=== PATIENT | female | born 1970 | race African-American/Black ===

== ENCOUNTER 2018-02-09 10:49 | Inpatient (IN) | payer OTHER ==
--- OUTSIDE RECORDS SUMMARY | 2018-02-09 10:52 | XMS REPORT | Clinical Summary ---
:1970 Author Organization [facility] Address [address] [place] [address] Care Team Providers Name Role Phone Asked, No Pcp Primary Care Provider Unavailable Allergies No Known Allergies Medications Not on file Active Problems Not on file Encounters Date Type Specialty Care Team Description 11/09/2017 Emergency Emergency Medicine Deo Cowart Decreased sensation of JasperDO right lower extremity s/p balloon angioplasty (Primary Dx) after 02/08/2017 Social History Tobacco Use Types Packs/Day Years Used Date Former Smoker Smokeless Tobacco: Never Used Sex Assigned at Date Recorded Not on file Job Start Date Occupation Industry Not on file Not on file Not on file Travel History Travel Start Travel End No recent travel history available. Last Filed Vital Signs Vital Sign Reading Time Taken Blood Pressure 168/84 11/09/2017 7:00 PM CDT Pulse 87 11/09/2017 7:00 PM CDT Temperature 36.2 C (97.1 F) 11/09/2017 4:41 PM CDT Respiratory Rate 14 11/09/2017 7:00 PM CDT Oxygen Saturation 99% 11/09/2017 7:00 PM CDT Inhaled Oxygen Concentration - - Weight 99.2 kg (218 lb 11.1 oz) 11/09/2017 4:36 PM CDT Height 162.6 cm (5' 4") 11/09/2017 4:36 PM CDT Body Mass Index 37.54 11/09/2017 4:36 PM CDT Plan of Treatment Health Maintenance Due Date Last Done Comments MMR VACCINES (1 of 1 - Standard 06/09/1972 series) VARICELLA VACCINES (1 of 2 - 2-dose 06/09/1984 adolescent series) CERVICAL CANCER SCREENING 06/09/1992 INFLUENZA VACCINE 10/21/2017 HEPATITIS B VACCINES Aged Out No longer eligible based on patient's age to complete this topic IPV VACCINES Aged Out No longer eligible based on patient's age to complete this topic MENINGOCOCCAL VACCINE Aged Out No longer eligible based on patient's age to complete this topic Procedures Procedure Name Priority Date/Time Associated Comments Diagnosis US DUPLEX VENOUS LOWER STAT 11/09/2017 6:54 Results for this EXTREMITY RIGHT PM CDT procedure are in the results section. US DUPLEX ARTERIAL STAT 11/09/2017 6:38 Results for this LOWER EXTREMITY RIGHT PM CDT procedure are in the results section. ZZESTIMATED GFR STAT 11/09/2017 4:50 Results for this PM CDT procedure are in the results section. HCG QUALITATIVE, SERUM STAT 11/09/2017 4:50 Results for this SCREEN PM CDT procedure are in the results section. B NATRIURETIC PEPTIDE STAT 11/09/2017 4:50 Results for this PM CDT procedure are in the results section. TROPONIN STAT 11/09/2017 4:50 Results for this PM CDT procedure are in the results section. COMPREHENSIVE STAT 11/09/2017 4:50 Results for this METABOLIC PANEL PM CDT procedure are in the results section. HC COMPLETE BLD COUNT STAT 11/09/2017 4:50 Results for this W/AUTO DIFF PM CDT procedure are in the results section. after 02/08/2017 Results PV Duplex Venous Lower Extremity (11/09/2017 6:54 PM CDT) Narrative Performed At EXAMINATION:US DUPLEX VENOUS LOWER EXTREMITY RIGHT [facility] CLINICAL HISTORY:numbnessdecreased sensation COMPARISON:None. TECHNIQUE:Grayscale, color Doppler, and spectral waveform analysis of the right lower extremity deep venous system was performed. The common femoral, superficial femoral, proximal deep femoral, greater saphenous, and popliteal veins were evaluated. The calf veins were also evaluated. FINDINGS: The right common femoral, superficial femoral, and popliteal veins are compressible. They demonstrate normal venous waveforms and response to augmentation. There is flow in the visualized calf veins. There is no evidence of a popliteal or Nunez's cyst. The contralateral common femoral vein was also evaluated, and is patent. IMPRESSION: Normal right lower extremity venous Doppler examination. There is no evidence of deep venous thrombosis. [facility]-[id number] Procedure Note Interface, Radiology Results Incoming - 11/09/2017 6:57 PM CDT EXAMINATION: US DUPLEX VENOUS LOWER EXTREMITY RIGHT CLINICAL HISTORY: numbness decreased sensation COMPARISON: None. TECHNIQUE: Grayscale, color Doppler, and spectral waveform analysis of the right lower extremity deep venous system was performed. The common femoral, superficial femoral, proximal deep femoral, greater saphenous, and popliteal veins were evaluated. The calf veins were also evaluated. FINDINGS: The right common femoral, superficial femoral, and popliteal veins are compressible. They demonstrate normal venous waveforms and response to augmentation. There is flow in the visualized calf veins. There is no evidence of a popliteal or Nunez's cyst. The contralateral common femoral vein was also evaluated, and is patent. IMPRESSION: Normal right lower extremity venous Doppler examination. There is no evidence of deep venous thrombosis. [facility]-[id number] Performing Organization Address City/State/Zipcode Phone Number [facility] [address] [place] [address] PV Duplex Arterial Lower Extremity (11/09/2017 6:38 PM CDT) Narrative Performed At EXAM: US DUPLEX ARTERIAL LOWER EXTREMITY RIGHT [facility] HISTORY: no palpable pulsedecreased sensation to right lower leg TECHNIQUE: Real-time as well as pulsed and color Doppler evaluation of bilateral common femoral, femoral, popliteal, posterior tibial, anterior tibial, and dorsalis pedis arteries are evaluated. The examination includes a full duplex Doppler scan of the blood vessels (real-time P mode grayscale, Doppler spectral analysis, and Doppler color flow imaging). IMPRESSION: Triphasic waveforms are demonstrated in the right lower extremity with biphasic waveforms below the popliteal artery. The findings would suggest stenosis at the right popliteal artery. No arterial occlusion is noted.. FINDINGS: Peak systolic velocities are as follows: RIGHT LEG: EXTERNAL ILIAC ARTERY:136 cm/s COMMON FEMORAL:110cm/s FEMORAL: Proximal: 53cm/s Mid: 49 cm/s Distal:6 6cm/s POPLITEAL: Proximal:40cm/s Mid: 51 cm/s Distal: 43cm/s POSTERIOR TIBIAL: Proximal: 52 cm/s Mid: 41 cm/s Distal:4 5 cm/s ANTERIOR TIBIAL: Proximal: 30 cm/s Mid: 32 cm/s Distal:5 0 cm/s DORSALIS PEDIS: 31 cm/s ANKLE BRACHIAL INDEX: Not performed. Posterior tibial: Dorsalis pedis: [id number] Procedure Note Interface, Radiology Results Incoming - 11/09/2017 6:48 PM CDT EXAM: US DUPLEX ARTERIAL LOWER EXTREMITY RIGHT HISTORY: no palpable pulse decreased sensation to right lower leg TECHNIQUE: Real-time as well as pulsed and color Doppler evaluation of bilateral common femoral, femoral, popliteal, posterior tibial, anterior tibial , and dorsalis pedis arteries are evaluated. The examination includes a full duplex Doppler scan of the blood vessels (real-time P mode grayscale, Doppler spectral analysis, and Doppler color flow imaging). IMPRESSION: Triphasic waveforms are demonstrated in the right lower extremity with biphasic waveforms below the popliteal artery. The findings would suggest stenosis at the right popliteal artery. No arterial occlusion is noted.. FINDINGS: Peak systolic velocities are as follows: RIGHT LEG: EXTERNAL ILIAC ARTERY: 136 cm/s COMMON FEMORAL: 110cm/s FEMORAL: Proximal: 53cm/s Mid: 49 cm/s Distal: 66cm/s POPLITEAL: Proximal: 40cm/s Mid: 51 cm/s Distal: 43cm/s POSTERIOR TIBIAL: Proximal: 52 cm/s Mid: 41 cm/s Distal: 45 cm/s ANTERIOR TIBIAL: Proximal: 30 cm/s Mid: 32 cm/s Distal: 50 cm/s DORSALIS PEDIS: 31 cm/s ANKLE BRACHIAL INDEX: Not performed. Posterior tibial: Dorsalis pedis: [id number] Performing Organization Address City/[facility]/Zipcode Phone Number [facility] [address] [place] [address] Estimated GFR (11/09/2017 4:50 PM CDT) GFR Non Af Amer 3 (A) mL/min/1.73 m2 [facility] DEPARTMENT OF PATHOLOGY AND GENOMIC MEDICINE GFR Af Amer 4 (A) mL/min/1.73 m2 [facility] DEPARTMENT OF Comment: PATHOLOGY AND GENOMIC Chronic kidney disease: <60 mL/min/1.73m2 MEDICINE Kidney failure: <15 mL/min/1.73m2 The estimated GFR is calculated from the IDMS-traceable Modification of Diet in Renal Disease Equation. The accuracy of the calculation is poor when the creatinine is normal. Calculated values >90 mL/min/1.73m2 are not reported. This equation has not been validated in children (<18 years), women, the elderly (>70 years), or ethnic groups other than Caucasians and Americans. Specimen Plasma specimen Performing Organization Address City/State/Zipcode Phone Number [facility] DEPARTMENT OF PATHOLOGY [address] [facility] [place] [address] AND Education Everytime MEDICINE Troponin (11/09/2017 4:50 PM CDT) Troponin <0.30 0.00 - 0.30 ng/mL [facility] DEPARTMENT OF PATHOLOGY Comment: AND GENOMIC MEDICINE 0.11 - 1.49 ng/mlMay indicate increased risk of acute coronary syndrome. >=1.5 ng/mlConsistent with acute myocardial infarction. The diagnostic value of a single normal or non-diagnostic result is questionable.Serial samples at 2-6 hour intervals are required to rule out acute myocardial injury. Specimen Plasma specimen Performing Organization Address City/State/Zipcode Phone Number [facility] DEPARTMENT OF PATHOLOGY [address] [place] [address] AND GENOMIC MEDICINE CBC with platelet and differential (11/09/2017 4:50 PM CDT) WBC 6.2 4.5 - 11.0 k/uL [facility] DEPARTMENT OF PATHOLOGY AND GENOMIC MEDICINE RBC 3.76 (L) 4.20 - 5.50 m/uL [facility] DEPARTMENT OF PATHOLOGY AND GENOMIC MEDICINE HGB 12.4 12.0 - 16.0 g/dL [facility] DEPARTMENT OF PATHOLOGY AND GENOMIC MEDICINE HCT 38.4 37.0 - 47.0 % [facility] DEPARTMENT OF PATHOLOGY AND GENOMIC MEDICINE MCV 102.1 (H) 82.0 - 100.0 fL [facility] DEPARTMENT OF PATHOLOGY AND GENOMIC MEDICINE MCH 33.0 27.0 - 34.0 pg [facility] DEPARTMENT OF PATHOLOGY AND GENOMIC MEDICINE MCHC 32.3 31.0 - 37.0 g/dL [facility] DEPARTMENT OF PATHOLOGY AND GENOMIC MEDICINE RDW - SD 54.5 37.0 - 55.0 fL [facility] DEPARTMENT OF PATHOLOGY AND GENOMIC MEDICINE MPV 11.0 6.9 - 11.0 fL [facility] DEPARTMENT OF PATHOLOGY AND GENOMIC MEDICINE Platelet count 155 150 - 400 K/uL [facility] DEPARTMENT OF PATHOLOGY AND GENOMIC MEDICINE Nucleated RBC 0.00 /100 WBC [facility] DEPARTMENT OF PATHOLOGY AND GENOMIC MEDICINE Neutrophils 59.5 39.0 - 69.0 % [facility] DEPARTMENT OF PATHOLOGY AND GENOMIC MEDICINE Lymphocytes 28.7 25.0 - 45.0 % [facility] DEPARTMENT OF PATHOLOGY AND GENOMIC MEDICINE Monocytes 7.6 0.0 - 10.0 % [facility] DEPARTMENT OF PATHOLOGY AND GENOMIC MEDICINE Eosinophils 3.1 0.0 - 5.0 % [facility] DEPARTMENT OF PATHOLOGY AND GENOMIC MEDICINE Basophils 0.6 0.0 - 1.0 % [facility] DEPARTMENT OF PATHOLOGY AND GENOMIC MEDICINE Immature granulocytes 0.5 0.0 - 1.0 % [facility] DEPARTMENT OF PATHOLOGY AND GENOMIC MEDICINE Specimen Blood Performing Organization Address City/[facility]/Zipcode Phone Number [facility] DEPARTMENT OF PATHOLOGY [address] [place] [address] AND [facility] hCG qualitative, serum screen (11/09/2017 4:50 PM CDT) hCG qualitative, serum NegativeComment: [facility] DEPARTMENT OF Sensitivity of HCG test: 25 PATHOLOGY AND GENOMIC mIU/mL MEDICINE Specimen Blood Performing Organization Address City/[facility] Phone [facility] DEPARTMENT OF PATHOLOGY [address] [place] [address] AND [facility] B natriuretic peptide (11/09/2017 4:50 PM CDT) BNP 435 (H) 0 - 100 pg/mL [facility] DEPARTMENT OF PATHOLOGY AND GENOMIC MEDICINE Specimen Blood Performing Organization Address [facility] Centercoor Phone Number [facility] DEPARTMENT OF PATHOLOGY [address] [place] [address] AND [facility] Comprehensive metabolic panel (11/09/2017 4:50 PM CDT) Sodium 140 135 - 148 mEq/L [facility] DEPARTMENT OF PATHOLOGY AND GENOMIC MEDICINE Potassium 5.5 (H) 3.5 - 5.0 mEq/L [facility] DEPARTMENT OF PATHOLOGY AND GENOMIC MEDICINE Chloride 90 (L) 98 - 112 mEq/L [facility] DEPARTMENT OF PATHOLOGY AND GENOMIC MEDICINE CO2 27 24 - 31 mEq/L [facility] DEPARTMENT OF PATHOLOGY AND GENOMIC MEDICINE Anion gap 23@ANIO (H) 7 - 15 mEq/L [facility] DEPARTMENT OF PATHOLOGY AND GENOMIC MEDICINE BUN 91 (H) 6 - 20 mg/dL [facility] DEPARTMENT OF PATHOLOGY AND GENOMIC MEDICINE Creatinine 11.9 (H) 0.5 - 0.9 mg/dL [facility] DEPARTMENT OF PATHOLOGY AND GENOMIC MEDICINE Glucose 175 (H) 65 - 99 mg/dL [facility] DEPARTMENT OF PATHOLOGY AND GENOMIC MEDICINE Calcium 9.1 8.3 - 10.2 mg/dL [facility] DEPARTMENT OF PATHOLOGY AND GENOMIC MEDICINE Protein 8.6 (H) 6.3 - 8.3 g/dL [facility] DEPARTMENT OF PATHOLOGY AND GENOMIC MEDICINE Albumin 4.4 3.5 - 5.0 g/dL [facility] DEPARTMENT OF PATHOLOGY AND GENOMIC MEDICINE A/G ratio 1.0 0.7 - 3.8 [facility] DEPARTMENT OF PATHOLOGY AND GENOMIC MEDICINE Alkaline phosphatase 78 35 - 104 U/L [facility] DEPARTMENT OF PATHOLOGY AND GENOMIC MEDICINE AST 37 (H) 10 - 35 U/L [facility] DEPARTMENT OF PATHOLOGY AND GENOMIC MEDICINE ALT 28 5 - 50 U/L [facility] DEPARTMENT OF PATHOLOGY AND GENOMIC MEDICINE Total bilirubin 0.7 0.2 - 1.2 mg/dL [facility] DEPARTMENT OF PATHOLOGY AND GENOMIC MEDICINE Specimen Plasma specimen Performing Organization Address City/State/Zipcode Phone Number [facility] DEPARTMENT OF PATHOLOGY [address] [place] [address] AND Education Everytime MEDICINE after 02/08/2017 Insurance Payer Benefit Plan / Group Subscriber ID Type Phone Address MEDICARE MEDICARE PART A AND B xxxxxxxxxx Medicare [place], [place] COMMERCIAL MISC MISC COMMERCIAL xxxxxxxxxx Commercial Advance Directives Patient has advance care planning documents on file. For more information, please contact:Juan Alberto [id number] [place] [address]
--- OUTSIDE RECORDS SUMMARY | 2018-02-09 10:52 | XMS REPORT | Clinical Summary ---
:1970 Author Organization [facility] Address [address] [place] [address] Care Team Providers Name Role Phone Rosy Lord MD Primary Care Provider Allergies No Known Allergies Medications Medication Sig Dispensed Refills Start Date End Date Status insulin aspart Inject 12 Units 0 Active (NOVOLOG) 100 unit/mL into the skin 3 injection (three) times daily before meals. sevelamer (RENVELA) Take 800 mg by 0 Active 800 mg tablet mouth 3 (three) times daily with meals. 5 tabs carvedilol (COREG) 25 Take 25 mg by 0 Active MG tablet mouth 2 (two) times daily with breakfast and dinner. esomeprazole (NEXIUM) Take 40 mg by 0 Active 40 MG capsule mouth daily. clopidogrel (PLAVIX) Take 75 mg by 0 Active 75 mg tablet mouth daily. zolpidem (AMBIEN) 5 MG Take 5 mg by mouth 0 Active tablet every night as needed. docusate sodium Take 100 mg by 0 Active (COLACE) 100 MG mouth 2 (two) capsule times daily. Active Problems Problem Noted Date Acute Left pontine CVA (HCC)Acute nonhemorrhagic, with Right sided 01/02/2016 numbness Numbness and tingling 12/30/2015 ESRD on hemodialysis 12/30/2015 Acute ischemic stroke 12/30/2015 PAD (peripheral artery disease) 09/15/2012 Osteomyelitis 09/14/2012 Osteomyelitis of foot 09/14/2012 Diabetes mellitus Hypertension Family History Medical History Relation Name Comments Lupus Cousin Diabetes Father Hypertension Father Kidney disease Father Hypertension Mother Stroke Mother Relation Name Status Comments Cousin Father Mother Social History Tobacco Use Types Packs/Day Years Used Date Former Smoker Alcohol Use Drinks/Week oz/Week Comments No Sex Assigned at Date Recorded Not on file Job Start Date Occupation Industry Not on file Not on file Not on file Travel History Travel Start Travel End No recent travel history available. Last Filed Vital Signs Not on file Plan of Treatment Not on file Results Not on fileafter 02/08/2017 Insurance Payer Benefit Plan / Group Subscriber ID Type Phone Address MEDICARE MEDICARE A B xxxxxxxxxx Medicare Advance Directives For more information, please contact:[address] [phone] Code Status Date Activated Date Inactivated Comments Full Code 12/30/2015 6:41 PM 01/01/2016 9:28 PM This code status was determined by: Patient Code ONE 09/14/2012 9:49 PM 09/22/2012 1:27 PM All possible means of support , including: cardiac massage, mechanical ventilation, and defibrillation will be used to support life.
[2018-02-09] MEDS ORDERED: ACETAMINOPHEN 500 MG TAB ONE (11:22)
[2018-02-09] MEDS ORDERED: NA CHLORIDE 0.9% 500 ML ONE (11:22)
[2018-02-09] MEDS ORDERED: CEFEPIME 1 GM/100 ML BAG IV ONE (11:23)
[2018-02-09 11:50] LABS: Absolute Lymphocytes (CBC) 0.8 K/uL (0.7-4.9); Absolute Monocytes 0.9 K/uL (0.1-1.3); Absolute Neutrophil 7.5 K/uL (1.8-8.0); Basophils % 0.4 % (0-1.3); Eosinophils % 0.8 % (0-4.4); Hematocrit 35.1 % (36.0-45.0); Lymphocytes % 8.4 % (15.3-44.8); MCH 34.5 pg (27.0-35.0); MCV 100.6 fL (80-100); MPV 9.3 fL (7.6-11.3); Monocytes % 9.2 % (3.3-12.3); RBC Red Blood Cell Count 3.49 M/uL (3.86-4.86)
[2018-02-09 11:57] LABS: Protime INR 1.19
[2018-02-09 12:12] LABS: Albumin 3.3 g/dL (3.4-5.0); Bilirubin Direct 0.5 mg/dL (0-0.2); Bilirubin Total 0.9 mg/dL (0.2-1.0); Potassium 4.5 mmol/L (3.5-5.1); Protein, Total 9.2 g/dL (6.4-8.2); Troponin (Emerg Dept Use Only) 0.02 ng/mL (0.0-0.045)
--- NOTE | 2018-02-09 12:25 | RAD REPORT ---
EXAM DESCRIPTION: RAD - Chest Single View - 02/09/2018 12:16 pm CLINICAL HISTORY: FEVER Chest pain. COMPARISON: Chest Single View dated 04/27/2017; Chest Single View dated 02/24/2017; Chest Single View d ated 12/30/2015; Chest Single View dated 09/10/2015 FINDINGS: Portable technique limits examination quality. Mild interstitial pulmonary edema is noted. The heart is mildly enlarged in size. No displaced fractu res.Right-sided catheter tubing is tip in the right atrium. IMPRESSION: Mild CHF versus volume overload.
[2018-02-09] MEDS ORDERED: VANCOMYCIN 1 GM/250 ML BAG ONE (13:25)
--- NOTE | 2018-02-09 13:28 | ER ---
Nurse's Notes [facility] Name: Anabell Ross Age: 47 yrs Sex: Female : 1970 Arrival Date: 02/09/2018 Time: 10:52 Bed 20 Private MD: Diagnosis: Bacteremia;Sepsis Presentation: 02/09 10:52 Presenting complaint: EMS states: from [facility], with complaints of hj tremors, able to finished 4 hours of dialysis, BGL- 82 on site; BGL with EMS- 93; denies N/V; denies pain; dialysis nurse reports fever but temp is 98.6 by EMS; A\T\O x 4;. Transition of care: patient was not received from another setting of care. Onset of symptoms was February 09, 2018. Risk Assessment: Do you want to hurt yourself or someone else? Patient reports no desire to harm self or others. Initial Sepsis Screen: Does the patient meet any 2 criteria? No. Patient's initial sepsis screen is negative. Does the patient have a suspected source of infection? No. Patient's initial sepsis screen is negative. Care prior to arrival: None. 10:52 Method Of Arrival: EMS: [facility] 10:52 Acuity: ALEXIA 3 hj Triage Assessment: 10:57 General: Appears in no apparent distress. uncomfortable, Behavior is calm, appropriate hj for age. Pain: Denies pain. EENT: No signs and/or symptoms were reported regarding the EENT system. Neuro: Level of Consciousness is awake, alert, obeys commands, Oriented to person, place, time, situation, Appropriate for age. Cardiovascular: Capillary refill < 3 seconds Patient's skin is warm and dry. Respiratory: Airway is patent Respiratory effort is even, unlabored, Respiratory pattern is regular, symmetrical. GI: No signs and/or symptoms were reported involving the gastrointestinal system. : No signs and/or symptoms were reported regarding the genitourinary system. Derm: dialysis graft on R upper arm;. Musculoskeletal: No signs and/or symptoms reported regarding the musculoskeletal system. 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 - Social history:: Smoking status: Patient/guardian denies using tobacco, Patient/guardian denies using alcohol. - Ebola Screening: : Patient negative for fever greater than or equal to 101.5 degrees Fahrenheit, and additional compatible Ebola Virus Disease symptoms Patient denies exposure to infectious person Patient denies travel to an Ebola-affected area in the 21 days before illness onset. Screenin:57 Abuse screen: Denies threats or abuse. Denies injuries from another. Nutritional hj screening: No deficits noted. Tuberculosis screening: No symptoms or risk factors identified. Fall Risk None identified. Assessment: 10:45 Reassessment: see triage for assessment;. hj 11:30 Reassessment: Patient and/or family updated on plan of care and expected duration. Pain hj level reassessed. Patient is alert, oriented x 3, equal unlabored respirations, skin warm/dry/pink. awaiting results and POC;. 12:30 Reassessment: Patient and/or family updated on plan of care and expected duration. Pain hj level reassessed. Patient is alert, oriented x 3, equal unlabored respirations, skin warm/dry/pink. 13:23 Reassessment: Patient and/or family updated on plan of care and expected duration. Pain hj level reassessed. Patient is alert, oriented x 3, equal unlabored respirations, skin warm/dry/pink. awaiting POC;. 14:18 Reassessment: provided with tray;. hj 15:14 Reassessment: per floor church secretary, nurse wont be available till after 20-25 minutes; floor nurse to call back ext [phone];. Vital Signs: 10:59 BP 154 / 74; Pulse 106; Resp 18; Temp 103.2(O); Pulse Ox 100% on R/A; Weight 94.35 kg; hj Height 5 ft. 4 in. (162.56 cm); Pain 0/10; 12:48 BP 115 / 58; Pulse 102; Resp 18; Temp 100.4(O); Pulse Ox 99% on R/A; hj 13:23 BP 108 / 60; Pulse 99; Resp 18; Pulse Ox 100% on R/A; hj 14:18 BP 114 / 99; Pulse 100; Resp 18; Pulse Ox 99% on R/A; hj 10:59 Body Mass Index 35.70 (94.35 kg, 162.56 cm) ED Course: 10:52 Patient arrived in ED. hj 10:55 Triage completed. hj 10:59 Arm band placed on right wrist. hj 10:59 Patient has correct armband on for positive identification. Placed in gown. Bed in low hj position. Call light in reach. Side rails up X 1. 11:03 Kalen Medina PA is PHCP. jr8 11:03 Marcio Acuña MD is Attending Physician. jr8 11:04 Jhonathan Baig, SARAH is Primary Nurse. hj 11:25 Initial lab(s) drawn, by me, sent to lab. First set of blood cultures drawn by me. hj 11:25 EKG done, by traffic survey technician. reviewed by Marcio Acuña MD. hj 11:32 Inserted saline lock: 20 gauge in left antecubital area, using aseptic technique. Blood hj collected. 11:38 Second set of blood cultures drawn by me, Flu and/or RSV swab sent to lab. Strep swab hj sent to lab. 12:15 X-ray completed. Portable x-ray completed in exam room. Patient tolerated procedure jb2 well. 13:26 Francesca Castillo MD is Hospitalizing Provider. jr8 16:19 No provider procedures requiring assistance completed. Patient admitted, IV remains in hj place. intact. Administered Medications: 11:25 Drug: Acetaminophen 1000 mg Route: PO; hj 11:34 Follow up: Response: No adverse reaction; Temperature is decreased hj 11:25 Drug: NS 0.9% 500 ml Route: IV; Rate: bolus; Site: left antecubital; hj 11:34 Follow up: IV Status: Completed infusion hj 11:38 Drug: Cefepime 1 grams Route: IVPB; Rate: 200 ml/hr; Infused Over: 30 mins; Site: left hj antecubital; 13:00 Follow up: IV Status: Completed infusion hj 13:10 Drug: vancoMYCIN 1 grams Route: IVPB; Infused Over: 2 hrs; Site: left antecubital; hj 13:22 Follow up: IV Status: Infusion continued Point of Care Testing: Blood Glucose: 11:04 Blood Glucose: 102 mg/dL; Ranges: Outcome: 13:27 Decision to Hospitalize by Provider. jeanna 16:18 Patient left the ED. 16:19 Admitted to Med/surg accompanied by tech, family with patient, via wheelchair, room hj 223, with chart, Report called to SARAH Chong 16:19 Condition: stable 16:19 Instructed on the need for admit, Demonstrated understanding of instructions. Signatures: Josef Montague jb2 Kalen Medina PA PA jr8 Jhonathan Baig, RN RN Ga Malik RN RN rv
--- NOTE | 2018-02-09 13:29 | EDPHYS ---
Physician Documentation [facility] Name: Anabell Ross Age: 47 yrs Sex: Female : 1970 Arrival Date: 02/09/2018 Time: 10:52 Bed 20 Private MD: ED Physician Marcio Acuña HPI: 02/09 13:16 This 47 yrs old Black Female presents to ER via EMS with complaints of Tremor. jr8 13:17 The patient reports fever, with an emergency department temperature of 103 degrees jr8 Fahrenheit. Onset: The symptoms/episode began/occurred acutely, today. Modifying factors: there are no obvious modifying factors. Associated signs and symptoms: Pertinent positives: general malaise . Severity of symptoms: At their worst the symptoms were moderate in the emergency department the symptoms are unchanged. The patient has not experienced similar symptoms in the past. The patient has not recently seen a physician. stated that patient had been fine this morning. After going to dialysis noticed she was not as responsive and shaking. Patient with 103 temperature in ED. 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 - Social history:: Smoking status: Patient/guardian denies using tobacco, Patient/guardian denies using alcohol. - Ebola Screening: : Patient negative for fever greater than or equal to 101.5 degrees Fahrenheit, and additional compatible Ebola Virus Disease symptoms Patient denies exposure to infectious person Patient denies travel to an Ebola-affected area in the 21 days before illness onset. ROS: 13:17 Eyes: Negative for injury, pain, redness, and discharge, ENT: Negative for injury, jr8 pain, and discharge, Neck: Negative for injury, pain, and swelling, Cardiovascular: Negative for chest pain, palpitations, and edema, Respiratory: Negative for shortness of breath, cough, wheezing, and pleuritic chest pain, Abdomen/GI: Negative for abdominal pain, nausea, vomiting, diarrhea, and constipation, Back: Negative for injury and pain, MS/Extremity: Negative for injury and deformity, Skin: Negative for injury, rash, and discoloration, Neuro: Negative for headache, weakness, numbness, tingling, and seizure. 13:17 Constitutional: Positive for fever, malaise. Exam: 13:17 Eyes: Pupils equal round and reactive to light, extra-ocular motions intact. Lids and jr8 lashes normal. Conjunctiva and sclera are non-icteric and not injected. Cornea within normal limits. Periorbital areas with no swelling, redness, or edema. ENT: Nares patent. No nasal discharge, no septal abnormalities noted. Tympanic membranes are normal and external auditory canals are clear. Oropharynx with no redness, swelling, or masses, exudates, or evidence of obstruction, uvula midline. Mucous membranes moist. Neck: Trachea midline, no thyromegaly or masses palpated, and no cervical lymphadenopathy. Supple, full range of motion without nuchal rigidity, or vertebral point tenderness. No Meningismus. Cardiovascular: Sinus Tachycardia with a normal rhythm with a normal S1 and S2. No gallops, murmurs, or rubs. Normal PMI, no JVD. No pulse deficits. Respiratory: Lungs have equal breath sounds bilaterally, clear to auscultation and percussion. No rales, rhonchi or wheezes noted. No increased work of breathing, no retractions or nasal flaring. Abdomen/GI: Soft, non-tender, with normal bowel sounds. No distension or tympany. No guarding or rebound. No evidence of tenderness throughout. Back: No spinal tenderness. No costovertebral tenderness. Full range of motion. Skin: Warm, dry with normal turgor. Normal color with no rashes, no lesions, and no evidence of cellulitis. MS/ Extremity: Pulses equal, no cyanosis. Neurovascular intact. Full, normal range of motion. Neuro: Awake and alert, GCS 15, oriented to person, place, time, and situation. Cranial nerves II-XII grossly intact. Motor strength 5/5 in all extremities. Sensory grossly intact. Cerebellar exam normal. Normal gait. Vital Signs: 10:59 BP 154 / 74; Pulse 106; Resp 18; Temp 103.2(O); Pulse Ox 100% on R/A; Weight 94.35 kg; hj Height 5 ft. 4 in. (162.56 cm); Pain 0/10; 12:48 BP 115 / 58; Pulse 102; Resp 18; Temp 100.4(O); Pulse Ox 99% on R/A; hj 13:23 BP 108 / 60; Pulse 99; Resp 18; Pulse Ox 100% on R/A; hj 14:18 BP 114 / 99; Pulse 100; Resp 18; Pulse Ox 99% on R/A; hj 10:59 Body Mass Index 35.70 (94.35 kg, 162.56 cm) MDM: 11:04 Patient medically screened. [facility] 13:23 Data reviewed: vital signs, nurses notes, lab test result(s), EKG, radiologic studies, [facility] plain films. Data interpreted: Pulse oximetry: on room air is 99 %. Interpretation: normal. Counseling: I had a detailed discussion with the patient and/or guardian regarding: the historical points, exam findings, and any diagnostic results supporting the discharge/admit diagnosis, lab results, radiology results, the need for further work-up and treatment in the hospital. Physician consultation: Francesca Castillo MD was called at 13:24, was contacted at 13:24, regarding admission, to the telemetry unit. consult, patient's condition, and will see patient. 13:27 ED course: 30 ml/kg bolus held due to ESRD/CHF/volume status . [facility] 02/09 11:11 Order name: Basic Metabolic Panel [facility] 02/09 11:11 Order name: Blood Culture Adult (2) [facility] 02/09 11:11 Order name: CBC with Diff [facility] 02/09 11:11 Order name: Lactate [facility] 02/09 11:11 Order name: LFT's [facility] 02/09 11:11 Order name: Lipase [facility] 02/09 11:11 Order name: Procalcitonin [facility] 02/09 11:11 Order name: Protime (+inr) [facility] 02/09 11:11 Order name: Troponin (emerg Dept Use Only) [facility] 02/09 11:11 Order name: Strep [facility] 02/09 11:11 Order name: Influenza Screen (a \T\ B) [facility] 02/09 11:56 Order name: CBC with Automated Diff; Complete Time: 12:07 EDMS 02/09 11:59 Order name: Protime (+INR); Complete Time: 12:07 EDMS 02/09 12:08 Order name: Lactate; Complete Time: 12:11 EDMS 02/09 11:11 Order name: Chest Single View XRAY [facility] 02/09 11:11 Order name: Accucheck; Complete Time: 11:11 [facility] 02/09 11:11 Order name: Cardiac monitoring; Complete Time: 11:11 [facility] 02/09 12:15 Order name: Basic Metabolic Panel; Complete Time: 12:21 EDMS 02/09 12:15 Order name: Liver (Hepatic) Function; Complete Time: 12:21 EDMS 02/09 12:15 Order name: Troponin (Emerg Dept Use Only); Complete Time: 12:21 EDMS 02/09 12:15 Order name: Lipase; Complete Time: 12:21 EDMS 02/09 12:23 Order name: Procalcitonin; Complete Time: 13:09 EDMS 02/09 12:25 Order name: RAD; Complete Time: 13:09 EDNM 02/09 12:26 Order name: Group A Streptococcus Rapid Sc; Complete Time: 13:09 [facility] 02/09 12:42 Order name: Influenza Screen (A ; Complete Time: 13:09 [facility] 02/09 13:38 Order name: Diet Renal; Complete Time: 13:38 02/09 11:11 Order name: EKG - Nurse/Tech; Complete Time: 11:32 [facility] 02/09 11:11 Order name: IV Saline Lock - Large Bore; Complete Time: 11:32 [facility] 02/09 11:11 Order name: Labs collected and sent; Complete Time: : [facility] 02/09 11:11 Order name: O2 Per Protocol; Complete Time: 11: [facility] 02/09 11:11 Order name: O2 Sat Monitoring; Complete Time: 11:12 [facility] Administered Medications: 11:25 Drug: Acetaminophen 1000 mg Route: PO; 11:34 Follow up: Response: No adverse reaction; Temperature is decreased 11:25 Drug: NS 0.9% 500 ml Route: IV; Rate: bolus; Site: left antecubital; 11:34 Follow up: IV Status: Completed infusion 11:38 Drug: Cefepime 1 grams Route: IVPB; Rate: 200 ml/hr; Infused Over: 30 mins; Site: left hj antecubital; 13:00 Follow up: IV Status: Completed infusion 13:10 Drug: vancoMYCIN 1 grams Route: IVPB; Infused Over: 2 hrs; Site: left antecubital; hj 13:22 Follow up: IV Status: Infusion continued Point of Care Testing: Blood Glucose: 11:04 Blood Glucose: 102 mg/dL; Ranges: Critical Glucose Levels:Adult <50 mg/dl or >400 mg/dl <40 mg/dl or >180 mg/dl Disposition: 02/10 06:38 Co-signature as Attending Physician, Marcio Acuña MD I agree with the assessment and kyrie plan of care. Disposition: 02/09/18 13:27 Hospitalization ordered by Francesca Castillo for Inpatient Admission. Preliminary diagnosis are Bacteremia, Sepsis. - Bed requested for Telemetry/MedSurg (Inpatient). - Status is Inpatient Admission. hj - Condition is Stable. - Problem is new. - Symptoms have improved. UTI on Admission? No Signatures: Dispatcher [employer] EDMS Sommer Silver, RN RN dm5 Marcio Acuña MD MD cha Roszak, Josh, PA PA jr8 Jhonathan Baig RN RN Corrections: (The following items were deleted from the chart) 02/09 13:41 11:11 Urine Dipstick-Ancillary ordered. [facility] 14:52 13:27 Hospitalization Ordered by Francesca Castillo MD for Inpatient Admission. Preliminary dm5 diagnosis is Bacteremia; Sepsis. Bed requested for Telemetry/MedSurg (Inpatient). Status is Inpatient Admission. Condition is Stable. Problem is new. Symptoms have improved. UTI on Admission? No. jr8 16:18 14:52 02/09/2018 13:27 Hospitalization Ordered by Francesac Castillo MD for Inpatient Admission. Preliminary diagnosis is Bacteremia; Sepsis. Bed requested for Telemetry/MedSurg (Inpatient). Status is Inpatient Admission. Condition is Stable. Problem is new. Symptoms have improved. UTI on Admission? No. dm5
--- NOTE | 2018-02-09 17:03 | P.HP ---
Certification for Inpatient Patient admitted to: Inpatient With expected LOS: >2 Midnights Practitioner: I am a practitioner with admitting privileges, knowledge of patient current condition, hospital course, and medical plan of care. Services: Services provided to patient in accordance with Admission requirements found in Title 42 Section 412.3 of the Code of Federal Regulations Patient History Date of Service: 02/09/18 Reason for admission: Sepsis History of Present Illness: This is a 47-year-old female with history of ESRD admitted for altered mentation after dialysis session. Per patient she went for dialysis session this morning, finish her session and while they were going to going to occur, she started shaking really bad. She states that she does not really remember what happened but she was told that she was not herself. Denies any fevers, headache, chest pain, shortness of breath, abdominal pain, back pain or diarrhea. She states that she does not make urine anymore. So she was sent to the ER from dialysis center. In the ER, she was noted to have a temperature of 103.2, tachycardic and elevated blood pressures in the 150s. At the time of my exam, she was alert and oriented x3, sitting up without any acute distress eating p.o., though she is still tachycardic, otherwise she was hemodynamically stable. Allergies No Known Allergies Allergy (Verified 02/24/17 23:27) Home Medications: Clopidogrel Bisulfate [Plavix*] 75 mg PO DAILY 03/27/14 Esomeprazole Mag Trihydrate [Nexium] 40 mg PO DAILY 03/27/14 Fenofibrate [Tricor*] 145 mg PO BEDTIME 03/27/14 Sevelamer Carbonate [Renvela*] 3 tab PO TIDWM 03/27/14 Zolpidem Tartrate [Ambien*] 10 mg PO BEDTIME 03/27/14 Cholecalciferol (Vitamin D3) [Vitamin D3] 5,000 unit PO DAILY 01/21/17 Vit B Comp&C/Folic Acid/Vit D3 [Dialyvite 800 Plus D Wafer] 1 each PO DAILY 04/08 Amlodipine [Norvasc*] 10 mg PO BEDTIME 02/24/17 Carvedilol [Coreg*] 50 mg PO BID 02/24/17 Tramadol HCl [Ultram] 50 mg PO Q6H #15 tablet 02/26/17 Insulin Aspart [Novolog] 12 units SQ AC 04/27/17 Insulin Detemir [Levemir*] 10 units SQ BEDTIME #1 vial 04/30/17 PIPER/TAZO/NS 2.25gm [Zosyn 2.25 gm/50 ml Ns Ivpb] 2.25 gm IV Q8HR #1 bag VANCOMYCIN/NS 1 gm [Vancomycin 1 gm/250 ml Ns Ivpb] 1 gm IV AFTER EACH DIALYSIS #1 bag 04/30/17 - Past Medical/Surgical History Diabetic: Yes -: kidney failure -: IDDM -: hypertension -: neuropathy -: [place] -: GERD -: ESRD -: -: Amputation of left great and 2nd toe -: 1/2 rt foot amputated -: Heart stent -: Right graft site - Family History Father -: Diabetes - Social History Alcohol use: Yes CD- Drugs: No Caffeine use: Yes Review of Systems General: As per HPI, Unremarkable Eyes: Unremarkable ENT: Unremarkable Respiratory: As per HPI, Unremarkable Cardiovascular: As per HPI, Unremarkable Gastrointestinal: As per HPI, Unremarkable Genitourinary: As per HPI Musculoskeletal: As per HPI Integumentary: Unremarkable Neurological: Confusion, As per HPI Lymphatics: Unremarkable Physical Examination - Vital Signs Temperature: 100.4 F Blood Pressure: 114/99 Pulse: 100 Respirations: 18 - Physical Exam General: Alert, In no apparent distress, Oriented x3 HEENT: Atraumatic, PERRLA, Mucous membr. moist/pink, EOMI, Sclerae nonicteric Neck: Supple, 2+ carotid pulse no bruit, No LAD, Without JVD or thyroid abnormality Respiratory: Clear to auscultation bilaterally, Normal air movement Cardiovascular: Regular rate/rhythm, Normal S1 S2, No gallops, No rubs, No murmurs Gastrointestinal: Normal bowel sounds, Soft and benign, Non-distended, No tenderness Integumentary: Diabetic ulcer, Other (Right foot: Amputated 5 toes, no ulceration or rash is noted. Left foot: 1st and 2nd toe amputation; 2 wounds on the sole, 1 chronic and the other 1 for the past 1 month. No drainage noted from the wound. ) Neurological: Normal speech, Normal strength at 5/5 x4 extr, Normal tone, Normal affect - Studies Laboratory Data (last 24 hrs) 02/09/18 11:21: PT 14.1 H, INR 1.19 02/09/18 11:21: WBC 9.3, Hgb 12.0, Hct 35.1 L, Plt Count 196 02/09/18 11:21: Sodium 138, Potassium 4.5, BUN 36 H, Creatinine 7.40 H*, Glucose 99, Total Bilirubin 0.9, AST 29, ALT 19, Alkaline Phosphatase 78, Lipase 336 Microbiology Data (last 24 hrs): 02/09/18 11:40 Nasopharnyx Influenza Type A Antigen Screen - Final 02/09/18 11:40 Nasopharnyx Influenza Type B Antigen Screen - Final 02/09/18 11:40 Throat Group A Streptococcus Rapid Screen - Final Assessment and Plan - Plan This is a 47-year-old female with: Sepsis, likely source from wound on feet Patient meets sepsis criteria with temperature greater than 100.4, heart rate greater than 90 with a suspected source from her feet. Will continue IV fluids, gentle hydration. Will continue IV antibiotics with vancomycin and Zosyn, renally dosed. Pharmacy consulted for dosing Blood cultures pending Chest x-ray without any acute abnormalities Negative for flu or strep Diabetic ulcers Left foot wound on sole Wound on left foot on the sole likely secondary to diabetic ulcer. This could be the source of infection Will get wound care, cultures of the wound to evaluate further. Foot x-ray and MRI to evaluate for bone involvement ordered, pending. Insulin-dependent diabetes mellitus. Accu-Cheks and start sliding scale insulin. Will adjust as needed Hypertension Elevated, hydralazine p.r.n. SBP greater than 160 Will restart home medications once they are reconciled Neuropathy History of myocardial infarction Stable, no complaints of chest pain. Troponins negative Will restart home medications once reconciled ESRD Patient on a Thursday, , Thursday dialysis schedule. She is a patient of Dr. Savage. She did complete her dialysis session this morning. Will consult nephrology. DVT prophylaxis: Lovenox. GI prophylaxis: Not needed Diet: Renal Disposition: Admit to floor, with tele. Monitor fever/vital signs. Continue empiric IV antibiotics. Pending cultures, symptomatic improvement. - Advance Directives Does patient have a Living Will: No Does patient have a Durable POA for Healthcare: No Physician Review: Patient Assessed, Agree with Above Assessment and Plan Time Spent Managing Pts Care (In Minutes): 55
[2018-02-09 17:27] VITALS: BMI 36.9
[2018-02-09] MEDS ORDERED: VANCOMYCIN/NS 1 gm 1 GM/250 ML BAG IV SCH (17:45)
[2018-02-09] MEDS ORDERED: VANCOMYCIN 1.5 GM in NA CHLORIDE 0.9% 500 ML IVPB ONE (18:00)
[2018-02-09] MEDS: PIPER/TAZO/NS 3.375gm 3.375 GM/100 ML BAG IVPB SCH (21:00)
--- NOTE | 2018-02-09 21:14 | RAD REPORT ---
EXAM DESCRIPTION: MRIFoot Left Wo Cont02/09/2018 8:51 pm CLINICAL HISTORY: Left foot pain and swelling COMPARISON: February 09, 2018 x-ray TECHNIQUE: Axial, sagittal and coronal magnetic resonance imaging of the left foot was obtained. FINDINGS: Amputations involve first and second phalanges. Ulceration involves the plantar soft tissues of the medial forefoot. Small area of increased signal is present within the first metatarsal head. A subacute minimally displaced fracture involves the third metatarsal neck. Soft tissue abscess is not seen IMPRESSION: Small area of increased signal within the first metatarsal head probably represents mini mal osteomyelitis Subacute fracture of the third metatarsal neck
--- NOTE | 2018-02-09 21:15 | RAD REPORT ---
EXAM DESCRIPTION: RAD - Foot Left 3 View - 02/09/2018 8:59 pm CLINICAL HISTORY: Left Foot pain FINDINGS: Amputations involve first and second phalanges. Subacute minimally displaced fracture involves the third metatarsal neck Soft tissue ulcerations involving medial forefoot. No bony destructive lesions seen
[2018-02-09] MEDS ORDERED: PIPERACILLIN-TAZO-DEXTROSE,ISO 3.375 GM/50 ML BAG IV SCH (22:00)
[2018-02-09] MEDS ORDERED: PIPERACIL/TAZO 3.375 GM VIAL IV ONE (22:21)
[2018-02-09] MEDS ORDERED: NA CHLORIDE 0.9% 100 ML ONE (22:23)
--- NOTE | 2018-02-10 05:53 | EKG ---
Test Date: 2018-02-09 Test Time: 11:17:49 Way Inspector: DANIEL MEASUREMENT RESULTS: Intervals: Rate: 105 MA: 160 QRSD: 98 QT: 368 QTc: 486 [place]: P: 51 MA: 160 QRS: -40 T: 69 INTERPRETIVE STATEMENTS: Sinus tachycardia Left axis deviation Possible Anterior infarct, age undetermined Abnormal ECG Compared to ECG 04/27/2017 08:40:46 Sinus rhythm no longer present Prolonged QT interval no longer present Myocardial infarct finding still present Electronically Signed On 02-10-18 05:52:54 INTELLIGENCE SENIOR SERGEANT by Nickolas Mills
[2018-02-10 06:28] LABS: Absolute Lymphocytes (CBC) 0.2 K/uL (0.7-4.9); Absolute Monocytes 0.3 K/uL (0.1-1.3); Absolute Neutrophil 5.2 K/uL (1.8-8.0); Basophils % 0.5 % (0-1.3); Eosinophils % 1.9 % (0-4.4); Hematocrit 35.7 % (36.0-45.0); Lymphocytes % 4.1 % (15.3-44.8); MCH 34.6 pg (27.0-35.0); MCV 101.4 fL (80-100); MPV 9.5 fL (7.6-11.3); Monocytes % 5.6 % (3.3-12.3); RBC Red Blood Cell Count 3.52 M/uL (3.86-4.86)
[2018-02-10 06:45] LABS: Albumin 3.1 g/dL (3.4-5.0); Bilirubin Total 0.9 mg/dL (0.2-1.0); Magnesium 2.1 mg/dL (1.8-2.4); Potassium 5.1 mmol/L (3.5-5.1); Protein, Total 8.3 g/dL (6.4-8.2)
[2018-02-10 08:39] LABS: Blood Morphology Comment NOT SEEN (NOT SEEN); Platelet Estimate ADEQ; Urine White Blood Cell Casts OK
[2018-02-10] MEDS: PIPER/TAZO/NS 3.375gm 3.375 GM/100 ML BAG IVPB SCH ×2 (09:21→21:03)
--- NOTE | 2018-02-10 15:44 | P.PN ---
Subjective Date of Service: 02/10/18 Chief Complaint: Sepsis Patient seen and examined at bedside. No family at bedside. Case discussed with nursing staff and . Patient reports feeling better. No acute events overnight. Last fever approximately 10 hr ago. No longer tachycardic No new concerns or complaints today except for the fact that she would like to go home today. Review of Systems As noted Physical Examination - Vital Signs Temperature: 97.9 F Blood Pressure: 133/62 Pulse: 89 Respirations: 20 Pulse Ox (%): 93 - Physical Exam General: Alert, In no apparent distress, Oriented x3 HEENT: Atraumatic, PERRLA, EOMI Neck: Supple, JVD not distended Respiratory: Clear to auscultation bilaterally, Normal air movement Cardiovascular: Regular rate/rhythm, Normal S1 S2 Gastrointestinal: Normal bowel sounds, No tenderness Musculoskeletal: No tenderness Integumentary: Diabetic ulcer, Other (Right foot: Amputated 5 toes, no ulceration or rash is noted. Left foot: 1st and 2nd toe amputation; 2 wounds on the sole, 1 chronic and the other 1 for the past 1 month. No drainage noted from the wound. ) Neurological: Normal speech, Normal tone, Normal affect Other Physical/Emotional Findings: Tearful, states she would like to go home - Studies Microbiology Data (last 24 hrs): 02/09/18 11:40 Nasopharnyx Influenza Type A Antigen Screen - Final 02/09/18 11:40 Nasopharnyx Influenza Type B Antigen Screen - Final 02/09/18 11:40 Throat Group A Streptococcus Rapid Screen - Final Assessment And Plan - Plan This is a 47-year-old female with: Sepsis, likely source from wound on feet: Improving. Patient meets sepsis criteria with temperature greater than 100.4, heart rate greater than 90 with a suspected source from her feet. Will continue IV fluids, gentle hydration. Will continue IV antibiotics with vancomycin and Zosyn, renally dosed. Pharmacy consulted for dosing Blood cultures and wound cultures pending Chest x-ray without any acute abnormalities Negative for flu or strep Diabetic ulcers Left foot wound on sole Wound on left foot on the sole likely secondary to diabetic ulcer. This could be the source of infection Will get wound care, cultures of the wound to evaluate further. MRI of foot with possibility of bone involvement/osteomyelitis. Will wait for cultures prior to deciding which antibiotics and for how long. She may need to go home on long-term IV antibiotics, which can be done with dialysis Insulin-dependent diabetes mellitus. Accu-Cheks and start sliding scale insulin. Will adjust as needed Hypertension Elevated, hydralazine p.r.n. SBP greater than 160 Home medication restarted (Coreg and amlodipine) Neuropathy History of myocardial infarction Stable, no complaints of chest pain. Troponins negative Home medications restarted ESRD Patient on a Thursday, , Thursday dialysis schedule. She is a patient of Dr. Savage. She did complete her dialysis session this morning. Nephrology consulted, recommendations appreciated.. DVT prophylaxis: Plavix, discontinue Lovenox GI prophylaxis: Not needed Diet: Renal Disposition: Monitor fever/vital signs. Continue empiric IV antibiotics. Pending cultures, symptomatic improvement. She may need long-term IV antibiotics, which can be done with dialysis. Physician Review: Patient Assessed, Agree with Above Assessment and Plan Time Spent Managing PTS Care (In Minutes): 35
[2018-02-10] MEDS: SEVELAMER CARBONATE 800 MG TABLET PO SCH (16:32)
[2018-02-10] MEDS ORDERED: ZOLPIDEM TARTRATE 10 MG TABLET PO SCH (21:00)
[2018-02-10] MEDS ORDERED: AMLODIPINE 10 MG TAB PO SCH (21:00)
[2018-02-10] MEDS: PROMOD 30 ML DOSE PO SCH (21:04)
[2018-02-10] MEDS: CARVEDILOL 25 MG TAB PO SCH (21:04)
--- NOTE | 2018-02-11 03:55 | CON ---
Continuation: Now with end-stage renal disease, who dialyzes on a Thursday, , Thursday schedu le at [facility] in [place]. The patient went for dialysis and the patient began having chills. The patient had altered mental status. She presented to the emergency room fr om the Dialysis Center and at that time, she was found to be febrile with a fever of 103.2, as well a s hypertensive. Workup revealed evidence of sepsis, and the patient was being admitted for further e valuation. The patient does have a history of diabetic angiopathy and suspicion is that the patient may have osteomyelitis of her , diabetic angiopathy with multiple amputations. Family History: Noncontributory. Allergies: NO KNOWN ALLERGIES. Physical Examination: Vital Signs: Blood pressure 133/62, pulse 89, afebrile. General: No acute distress. Heart: Regular rate and rhythm. No murmurs, rubs, gallops. Lungs: Clear to auscultation bilaterally. Abdomen: Soft, nontender, nondistended. Positive bowel sounds x4. Extremities: With prior amputated state noted with left foot wound also noted. Laboratory Data: Reviewed. The patient does have hyperphosphatemia. Potassium is 5.1, CO2 28, and phosphorus is 6. Albumin 3.1. Impression: 1.End-stage renal disease, on hemodialysis. 2.Sepsis. 3.Altered mental status. 4.Possible diabetic foot wound infection. Plan: The patient will continue on routine dialysis. The patient did complete her treatment on . Next dialysis will be scheduled for . The patient's MRI did show evidence of a left fi rst metatarsal osteomyelitis as well as subacute fracture of the third metatarsal. The patient will likely require antibiotics and will dose per dialysis. Continue antihypertensive regimen. Continue the patient on phosphorus binders and renal diet. SE/MODL Voice ID: [id number] Report ID: [id number]
[2018-02-11 06:11] LABS: Absolute Lymphocytes (CBC) 0.4 K/uL (0.7-4.9); Absolute Monocytes 0.6 K/uL (0.1-1.3); Absolute Neutrophil 3.2 K/uL (1.8-8.0); Basophils % 1.3 % (0-1.3); Eosinophils % 5.8 % (0-4.4); Hematocrit 32.6 % (36.0-45.0); Lymphocytes % 9.3 % (15.3-44.8); MCH 34.2 pg (27.0-35.0); MCV 101.1 fL (80-100); MPV 9.4 fL (7.6-11.3); Monocytes % 12.5 % (3.3-12.3); RBC Red Blood Cell Count 3.23 M/uL (3.86-4.86)
[2018-02-11] MEDS ORDERED: PANTOPRAZOLE 40MG TABLET PO SCH (06:30)
[2018-02-11 06:39] LABS: Albumin 2.9 g/dL (3.4-5.0); Bilirubin Total 0.7 mg/dL (0.2-1.0); Potassium 5.3 mmol/L (3.5-5.1); Protein, Total 7.8 g/dL (6.4-8.2)
[2018-02-11 07:01] LABS: Blood Morphology Comment NOT SEEN (NOT SEEN); Platelet Estimate ADEQ; Urine White Blood Cell Casts OK
[2018-02-11 08:09] VITALS: BP 135/72; TEMP 97.4
[2018-02-11] MEDS ORDERED: [UNRECOGNIZED DRUG - OTHER] PO SCH (09:00)
[2018-02-11] MEDS ORDERED: FOLIC ACID PO SCH (09:00)
[2018-02-11] MEDS ORDERED: VITAMIN D 5,000 UNIT CAP PO SCH (09:00)
[2018-02-11] MEDS ORDERED: FENOFIBRATE 160 MG TAB PO SCH (09:00)
[2018-02-11] MEDS ORDERED: VIT D3 PO SCH (09:00)
[2018-02-11] MEDS ORDERED: VIT B COMP PO SCH (09:00)
[2018-02-11] MEDS ORDERED: CLOPIDOGREL 75 MG TABLET PO SCH (09:00)
[2018-02-11] MEDS: PROMOD 30 ML DOSE PO SCH (09:00)
[2018-02-11] MEDS: PIPER/TAZO/NS 3.375gm 3.375 GM/100 ML BAG IVPB SCH (10:23)
[2018-02-11] MEDS: CARVEDILOL 25 MG TAB PO SCH (10:26)
[2018-02-11] MEDS: SEVELAMER CARBONATE 800 MG TABLET PO SCH (10:27)
[2018-02-11 10:50] VITALS: O2SAT 97
--- NOTE | 2018-02-11 14:02 | P.DS ---
Admission Date: 02/09/18 Discharge Date: 02/11/18 Disposition: AMA-LEFT AGAINST MEDICAL ADVIC Reason for Admission: Sepsis Brief History of Present Illness: This is a 47-year-old female with history of ESRD admitted for altered mentation after dialysis session. Per patient she went for dialysis session this morning, finish her session and while they were going to going to occur, she started shaking really bad. She states that she does not really remember what happened but she was told that she was not herself. Denies any fevers, headache, chest pain, shortness of breath, abdominal pain, back pain or diarrhea. She states that she does not make urine anymore. So she was sent to the ER from dialysis center. In the ER, she was noted to have a temperature of 103.2, tachycardic and elevated blood pressures in the 150s. At the time of my exam, she was alert and oriented x3, sitting up without any acute distress eating p.o., though she is still tachycardic, otherwise she was hemodynamically stable. Hospital Course: Diabetic ulcers Left foot wound on sole Sepsis, likely source from wound on feet: Resolved Insulin-dependent diabetes mellitus. Hypertension Neuropathy History of myocardial infarction ESRD Patient met sepsis criteria with temperature greater than 100.4, heart rate greater than 90 with a suspected source from her feet. She was given IV fluids, IV antibiotics with vancomycin and Zosyn. Blood culture the wound cultures were taken. Blood cultures showed no growth for 24 hr, wound cultures are still pending. Wound on her left for the soles likely secondary to diabetic ulcer, likely infected and source of infection. MRI of the foot with possible to bone involvement/osteomyelitis. We recommended patient to stay in hospital told was decided which antibiotics she could be on upon discharge. Patient did not want to stay, left AMA. She understood the risks of leaving AMA including but not limited to further amputation of feet, extension of the infection and worsening of infection. I will continue to follow cultures, social work to work on setting up IV vancomycin with dialysis. The [place] is a holiday, unsure how quickly this will be able to be done. Patient has dialysis session scheduled for Thursday, encouraged patient to keep dialysis session. Otherwise she remained stable throughout her stay. Vital Signs/Physical Exam: Temp Pulse Resp BP Pulse Ox 97.4 F 77 16 135/72 97 02/11/18 08:00 02/11/18 08:00 02/11/18 08:00 02/11/18 08:00 02/11/18 08:00 General: Alert, In no apparent distress, Oriented x3 HEENT: Atraumatic, PERRLA, EOMI Neck: Supple, JVD not distended Respiratory: Clear to auscultation bilaterally, Normal air movement Cardiovascular: Regular rate/rhythm, Normal S1 S2 Gastrointestinal: Normal bowel sounds, No tenderness Integumentary: Diabetic ulcer, Other Neurological: Normal speech, Normal tone, Normal affect Lymphatics: No axilla or inguinal lymphadenopathy Other Physical/Emotional Findings: Tearful, states she would like to go home Laboratory Data at Discharge: WBC 4.5 K/uL (4.3-10.9) D 02/11/18 05:54 Hgb 11.0 g/dL (12.0-15.0) L 02/11/18 05:54 Hct 32.6 % (36.0-45.0) L 02/11/18 05:54 Plt Count 167 K/uL (152-406) 02/11/18 05:54 PT 14.1 SECONDS (9.5-12.5) H 02/09/18 11:21 INR 1.19 02/09/18 11:21 Sodium 138 mmol/L (136-145) 02/11/18 05:54 Potassium 5.3 mmol/L (3.5-5.1) H 02/11/18 05:54 BUN 87 mg/dL (7-18) H 02/11/18 05:54 Creatinine 12.40 mg/dL (0.55-1.3) H* D 02/11/18 05:54 Glucose 141 mg/dL (74-106) H 02/11/18 05:54 Phosphorus 6.0 mg/dL (2.5-4.9) H 02/10/18 06:05 Magnesium 2.1 mg/dL (1.8-2.4) 02/10/18 06:05 Total Bilirubin 0.7 mg/dL (0.2-1.0) 02/11/18 05:54 AST 44 U/L (15-37) H 02/11/18 05:54 ALT 27 U/L (12-78) 02/11/18 05:54 Alkaline Phosphatase 59 U/L (45-117) 02/11/18 05:54 Lipase 336 U/L (73-393) 02/09/18 11:21 Home Medications: Clopidogrel Bisulfate [Plavix*] 75 mg PO DAILY 03/27/14 Esomeprazole Mag Trihydrate [Nexium] 40 mg PO DAILY 03/27/14 Fenofibrate [Tricor*] 145 mg PO BEDTIME 03/27/14 Sevelamer Carbonate [Renvela*] 3 tab PO TIDWM 03/27/14 Zolpidem Tartrate [Ambien*] 10 mg PO BEDTIME 03/27/14 Cholecalciferol (Vitamin D3) [Vitamin D3] 5,000 unit PO DAILY 01/21/17 Vit B Comp&C/Folic Acid/Vit D3 [Dialyvite 800 Plus D Wafer] 1 each PO DAILY 04/08 Amlodipine [Norvasc*] 10 mg PO BEDTIME 02/24/17 Carvedilol [Coreg*] 25 mg PO BID 02/24/17 Tramadol HCl [Ultram] 50 mg PO Q6H #15 tablet 02/26/17 Insulin Aspart [Novolog] 12 units SQ AC 04/27/17 Insulin Degludec [Tresiba Flextouch U-100] 10 units SQ BEDTIME 02/09/18
== END 2018-02-11 11:45 | disposition left against medical advice (07) | DRG 871 ==
LOC: ER 10:49 → ERHOLD 13:40 → 2ND 16:03
PROVIDERS: ADMIT Family Medicine; ATTEND Family Medicine
DX: A41.9 Sepsis, unspecified organism (principal); N18.6 End stage renal disease; I12.0 Hypertensive chronic kidney disease with stage 5 chronic kidney disease or end stage renal disease; M86.8X7 Other osteomyelitis, ankle and foot; S92.332A Displaced fracture of third metatarsal bone, left foot, initial encounter for closed fracture; L97.529 Non-pressure chronic ulcer of other part of left foot with unspecified severity; R00.0 Tachycardia, unspecified; E11.621 Type 2 diabetes mellitus with foot ulcer; E11.22 Type 2 diabetes mellitus with diabetic chronic kidney disease; E11.69 Type 2 diabetes mellitus with other specified complication; Z53.21 Procedure and treatment not carried out due to patient leaving prior to being seen by health care provider; Z99.2 Dependence on renal dialysis; I25.2 Old myocardial infarction
CPT/HCPCS: 36415; 71045; 80048; 80053; 80076; 80202; 82962; 83605; 83690; 83735; 84100; 84145; 84484; 85025; 85610; 87040; 87070; 87077; 87081; 87186; 87205; 87804; 93005; 96365; 96375; 99285; J0692; J2543; J3370